=== PATIENT | male | born 1940 | race Caucasian/White ===

== ENCOUNTER 2018-02-18 16:02 | Emergency (ER) | payer OTHER ==
[~2018-02-18] VITALS: Ht 180.3 cm; Wt 100.0 kg
[2018-02-18 16:10] VITALS: BP 138/64; PULSE 77; RESP 16; TEMP 98.2; O2SAT 95
[2018-02-18] MEDS ORDERED: [UNRECOGNIZED DRUG - REMARK] (16:18)
[2018-02-18] MEDS ORDERED: LEVO88TA2 PO (16:18)
[2018-02-18] MEDS ORDERED: ALLO100T PO (16:18)
[2018-02-18] MEDS ORDERED: LISI-515 PO (16:18)
[2018-02-18] MEDS ORDERED: BACT800T5 PO (16:22)
[2018-02-18] MEDS ORDERED: CEPH-460 PO (16:26)
--- NOTE | 2018-02-18 16:28 | PD ---
HPI Chief Complaint: ENT Complaint Time Seen by Provider: 16:14 Travel History International Travel<30 days: No Contact w/Intl Traveler<30days: No Traveled to known affect area: No History of Present Illness HPI 77-year-old male presents emergency department for evaluation of left ear swelling and pain that has been present for approximately 1 week. He says that over the last week the pain has been worsening and he noticed the ear has been swelling outward so decided to come to emergency department for evaluation. The ear is aching without radiation. He has some tenderness in the front of and directly behind the ear. He denies loss of hearing. Denies clicking or popping. He denies any water exposures that he can recall. No foreign body insertion. Denies fevers or chills. He does not have a history of cough or cold-like symptoms. PFSH Past Medical History Dementia: Yes Diabetes: Yes Patient Takes Glucophage: No Diminished Hearing: No Gout: Yes Hypertension: Yes Thyroid Disease: Yes Influenza Vaccination: Yes ?: Not Past Surgical History Appendectomy: Yes Social History Alcohol Use: No Tobacco Use: No Allergies-Medications (Allergen,Severity, Reaction): Coded Allergies: No Known Allergies (Verified Allergy, Unknown, 02/18/18) Reported Meds & Prescriptions Reported Meds & Active Scripts Active Keflex (Cephalexin) 500 Mg Cap 500 Mg PO Q8H 10 Days Bactrim DS (Sulfamethoxazole-Trimethoprim) 800-160 Mg Tab 1 Tab PO BID Reported [Dementia Pill] 0 Allopurinol 100 Mg Tab 100 Mg PO DAILY Levothyroxine (Levothyroxine Sodium) 88 Mcg Tab 88 Mcg PO DAILY Lisinopril 20 Mg Tab 20 Mg PO DAILY Review of Systems Except as stated in HPI: all other systems reviewed are Neg Physical Exam Narrative GENERAL: Well-nourished, well-developed patient, in NAD SKIN: Focused skin assessment warm/dry. No rashes or lesions. left ear- mild edema of the inner helix with some protrusion of the ear compared to the right. Mild tenderness palpation of the preauricular and posterior auricular lymph nodes without significant lymphadenopathy. HEAD: Normocephalic. Atraumatic. EYES: No scleral icterus. No injection or drainage. PERRLA, EOMI THROAT: No pharyngeal injection, exudates, or tonsillar hypertrophy. Airway is patent. NECK: Supple, trachea midline. No JVD or lymphadenopathy. No meningismus. CARDIOVASCULAR: Regular rate and rhythm without murmurs, gallops, or rubs. RESPIRATORY: Breath sounds equal bilaterally. No accessory muscle use. No wheezes, rales, or rhonchi MUSCULOSKELETAL: No cyanosis, or edema. BACK: Nontender without obvious deformity. No CVA tenderness. Data Data Last Documented VS Vital Signs Date Time Temp Pulse Resp B/P (MAP) Pulse Ox O2 Delivery O2 Flow Rate FiO2 02/18/18 16:31 02/18/18 16:10 98.2 77 16 95 Orders Orders Ed Discharge Order (02/18/18 16:28) MDM Medical Decision Making Medical Screen Exam Complete: Yes Emergency Medical Condition: Yes Differential Diagnosis Left ear cellulitis, otitis externa, otitis media, lymphadenopathy, erysipelas, mastoiditis Narrative Course 77-year-old male presents emergency department for evaluation of left ear swelling and pain that has been present for approximately 1 week. He says that over the last week the pain has been worsening and he noticed the ear has been swelling outward so decided to come to emergency department for evaluation. The ear is aching without radiation. He has some tenderness in the front of and directly behind the ear. He denies loss of hearing. Denies clicking or popping. He denies any water exposures that he can recall. No foreign body insertion. Denies fevers or chills. He does not have a history of cough or cold-like symptoms. Vital signs are stable. His exam findings consistent with cellulitis of the ear. There is some edema of the internal portion of the helix with mild erythema but no extension of either into the base of the ear. I will cover with Bactrim and Keflex. Patient should take all antibiotics as prescribed. Follow-up with his primary care physician within 2-3 days. Return for worsening or persistent symptoms. Diagnosis Primary Impression: Cellulitis Qualified Codes: L03.211 - Cellulitis of face Referrals: Primary Care Physician Additional Instructions: Take all medications as prescribed. Follow-up with your primary care physician within 2-3 days. If your symptoms worsen or persist return to the emergency department. Scripts Cephalexin (Keflex) 500 Mg Cap 500 MG PO Q8H for Infection for 10 Days, #30 CAP 0 Refills Prov: Miguel Porter MD 6/2/18 Sulfamethoxazole-Trimethoprim (Bactrim DS) 800-160 Mg Tab 1 TAB PO BID for Infection, #20 TAB 0 Refills Prov: Miguel Porter MD 02/18/18 Disposition: 01 DISCHARGE HOME Condition: Stable Lena Schuster Feb 18, 2018 16:28
== END 2018-02-18 16:44 | disposition home or self-care (01) ==
LOC: PHEFT 16:02
DX: H60.12 Cellulitis of left external ear (principal); I10 Essential (primary) hypertension; E11.9 Type 2 diabetes mellitus without complications; E07.9 Disorder of thyroid, unspecified; F03.90 Unspecified dementia, unspecified severity, without behavioral disturbance, psychotic disturbance, mood disturbance, and anxiety; Z79.899 Other long term (current) drug therapy
CPT/HCPCS: 99283